=== PATIENT | female | born 1935 | race Caucasian/White ===

== ENCOUNTER → 2016-10-12 | Outpatient (CLI) | payer MEDICARE | LOC: MAMO 10-03 11:00 | DX: Z12.31 Encounter for screening mammogram for malignant neoplasm of breast (principal); Z78.0 Asymptomatic menopausal state | CPT/HCPCS: G0202 ==

== ENCOUNTER → 2016-10-13 | Outpatient (CLI) | payer MEDICARE ==
[~2016-10-13] VITALS: Ht 170.2 cm; Wt 53.5 kg
== END ==
LOC: OPSV 10:00
DX: M81.0 Age-related osteoporosis without current pathological fracture (principal); Z88.8 Allergy status to other drugs, medicaments and biological substances
CPT/HCPCS: 96365; J3489; J7050

== ENCOUNTER → 2016-12-01 | Outpatient (CLI) | payer MEDICARE | LOC: MAMO 12:32 | DX: R92.8 Other abnormal and inconclusive findings on diagnostic imaging of breast (principal); Z78.0 Asymptomatic menopausal state | CPT/HCPCS: 76641-LT; 76641-RT; G0204 ==